=== PATIENT | male | born 1980 | race Caucasian/White ===

== ENCOUNTER 2021-12-24 10:05 | Emergency (ER) | payer BC, SELFPAY ==
[2021-12-24 10:06] VITALS: BP 144/82; PULSE 70; RESP 16; TEMP 36.3; O2SAT 99; BMI 26.4
--- NOTE | 2021-12-24 10:37 | RAD_ITS ---
EXAM: XR LEFT HUMERUS, 2 OR MORE VIEWS CLINICAL INDICATION: Trauma pain TECHNIQUE: Frontal and lateral views of the left humerus. This report was created using [employer] report generation technology. COMPARISON: None. FINDINGS: BONES/JOINTS: Unremarkable. No acute fracture. No subluxation. Normal alignment. Preservation of the joint space. No sclerotic or destructive changes observed. SOFT TISSUES: Unremarkable. No soft tissue swelling or gas. No radiopaque foreign body. RAD/Humerus min 2 Views IMPRESSION: Negative left humerus x-rays. Electronically Signed: Matt Chandler MD at 11:35 EDT ,
--- NOTE | 2021-12-24 10:40 | EX.ED.GENINJ ---
HPI History of Present Illness Chief Complaint: Fall PFSH PFSH Home Medications sertraline 100 mg tablet (Zoloft) 200 mg PO DAILY 12/24/21 [History Last Taken Unknown] Allergy/AdvReac Type Severity Reaction Status Date / Time No Known Allergies Allergy Verified 12/24/21 10:07 Social History Smoking Status: Never smoker ROS ROS ED Constitutional Constitutional ED: Denies chills or fever(s) Eyes Eyes: Denies blurry vision or change in vision ENT ENT ED: Denies rhinorrhea or sore throat Cardiovascular Cardiovascular: Denies chest pain Respiratory/Chest Respiratory/Chest: Denies cough or dyspnea Gastrointestinal Gastrointestinal: Denies nausea or vomiting Genitourinary Genitourinary ED: Denies hematuria Musculoskeletal Musculoskeletal: Reports other Details: Left posterior humeral area pain. It is not actually in his elbow. ; Denies back pain Integumentary Reports Abrasions and other Details: Abrasion versus laceration in the right upper scalp Neurologic Neurologic: Denies headache(s), paresthesias or weakness Hematologic/Lymphatic Hematologic/Lymphatic: Denies easy bleeding or easy bruising Allergic/Immunologic Allergic/Immunologic ED: Denies urticaria EXAM Physical Exam Const Vital Signs: 12/24/21 10:06 12/24/21 10:16 Temperature 97.3 F L Temperature Source Temporal Pulse Rate 70 Respiratory Rate 16 Respiratory Effort Normal Respiratory Depth Normal Blood Pressure 144/82 H Blood Pressure Mean 102 Pulse Ox 99 Oxygen Delivery Method Room Air Positive well nourished and well developed General Appearance ED: well developed and NAD HEENT HEENT Narrative: Contusion/abrasion possible laceration to front right scalp. We are going to clean this to get better look. No active bleeding at this time. Eyes PERRL and EOMs intact bilaterally Neck full ROM General: Negative for tenderness Chest Wall inspection of chest normal and palpation of chest normal Resp normal respiratory effort and clear to auscultation bilaterally Cardio regular rhythm Rate: regular rate GI normal to inspection, nondistended, normoactive bowel sounds Back/Spine normal to inspection Thoracic Spine / Upper Back: Negative for thoracic spinal tenderness Extremity Extremity Narrative: Patient has some tenderness to the posterior aspect of the humerus in the midportion. His tricep seems to be intact both functionally and I do not feel any defects. There is no tenderness of the elbow. No pain at the shoulder. Range of motion of those joints are intact. He states he had some tingling of his left index finger after the injury but that is almost gone now. Neuro oriented x3, no focal motor deficits and no sensory deficits noted Motor Exam: strength 5/5 throughout Skin Skin Narrative: See scalp findings as above MDM MDM MDM Narrative Medical decision making narrative: 4 view x-ray of the patient's left humerus shows no fracture. Patient is moving it more. He states he keeps getting better and better. Procedure: Staple laceration: The area around the scalp was cleaned and scrubbed. He does have a Y-shaped laceration with a contused area in the middle. This does require closure. There is no step-off. We discussed options. We anesthetized it with 1% lidocaine with epinephrine locally. Used a total of 2-1/2 cc. Good anesthesia was achieved. It was then scrubbed. It was irrigated. I put 2 cipriano at the upper end and lower end. The area in the middle was very contused and abraded but closed well without stapling. I do not want to devitalize this further. He tolerated this well. Cipriano come out in 5 days. Discharge Plan Triage Chief Complaint: Fall ED Provider: Russell Cosby Dx/Rx/DC Orders Clinical Impression: Complex laceration of scalp, Closed head injury, Contusion of arm, left Instructions: ED Soft Tissue Contusion, ED Laceration Scalp Stitches or Cipriano Prescriptions: No Action sertraline [Zoloft] 100 mg Tablet 200 mg PO DAILY Primary Care Provider: BEV THORPE III Referrals: [facility] Doctor,Out of [NON-STAFF] - 5 Days for suture removal Disposition Disposition: Home, Self Care
[2021-12-24] MEDS: Lidocaine 1% /Epi 1:100 (20ml) 20 ML Vial INFILT (10:49)
[2021-12-24] MEDS: Diphth,Pertuss(Acell),Tet Vac 0.5 ML Vial IM (10:50)
[2021-12-24 11:52] VITALS: BP 118/82; PULSE 64; RESP 16; O2SAT 98
== END 2021-12-24 11:53 | disposition home or self-care (01) ==
PROVIDERS: Emergency Provider Emergency Medicine; Visit Provider Emergency Medicine
DX: S01.01XA Laceration without foreign body of scalp, initial encounter (principal); W19.XXXA Unspecified fall, initial encounter; S40.022A Contusion of left upper arm, initial encounter; Z23 Encounter for immunization
CPT/HCPCS: 12001; 73060; 90471; 90715; 99282